=== PATIENT | female | born 1960 | race Caucasian/White ===

== ENCOUNTER → 2017-02-08 | Outpatient (CLI) | payer BC, OTHER ==
[~2017-02-08] MED LIST: ASPIRIN EC81 M1 PO; CALCIUM 600 MG1 EAC2 PO; CALCIUM OYSTER500 MG PO; FISH OIL 1,0001 EAC5 PO; FLEXERIL PO; HYDROCODONE-AP1 EAC6 PO; IBUPROFEN 600600 M1 PO; MEDROLDOSEPACK PO; ONE-A-DAY WOMENS PO; PERCOCET 5-3251 EACH PO; RECLAST 55 MG/1002 IV; VALIUM5 MG PO; VITCB500GO PO
== END ==
LOC: RAD 11:01
DX: Z12.31 Encounter for screening mammogram for malignant neoplasm of breast (principal)

== ENCOUNTER → 2019-03-19 | Outpatient (CLI) | payer BC, OTHER | LOC: RAD 11:20 | DX: Z12.31 Encounter for screening mammogram for malignant neoplasm of breast (principal) ==

== ENCOUNTER → 2019-04-02 | Outpatient (CLI) | payer OTHER | LOC: CAT 14:08 | DX: Z13.6 Encounter for screening for cardiovascular disorders (principal); E78.00 Pure hypercholesterolemia, unspecified; I25.10 Atherosclerotic heart disease of native coronary artery without angina pectoris ==

== ENCOUNTER → 2019-12-15 | Outpatient (CLI) | payer BC, OTHER | LOC: LAB 11:19 | PROVIDERS: ATTEND Internal Medicine Cardiovascular Disease | DX: Z01.818 Encounter for other preprocedural examination (principal); Z11.59 Encounter for screening for other viral diseases ==

== ENCOUNTER → 2020-04-26 | Outpatient (CLI) | payer BC, OTHER | LOC: RAD 14:27 | PROVIDERS: ATTEND Family Medicine | DX: Z12.31 Encounter for screening mammogram for malignant neoplasm of breast (principal) ==

== ENCOUNTER → 2021-04-26 | Outpatient (CLI) | payer OTHER | LOC: RAD 13:21 | PROVIDERS: ATTEND Specialist | DX: Z12.31 Encounter for screening mammogram for malignant neoplasm of breast (principal); N64.89 Other specified disorders of breast ==

== ENCOUNTER → 2021-05-01 | Outpatient (CLI) | payer OTHER | LOC: BC 12:51 | PROVIDERS: ATTEND Specialist | DX: N63.20 Unspecified lump in the left breast, unspecified quadrant (principal); R92.8 Other abnormal and inconclusive findings on diagnostic imaging of breast ==